=== PATIENT | female | born 1960 | race African-American/Black ===

== ENCOUNTER 2021-03-25 12:07 | Outpatient (CLI) | payer BC | END 2021-03-25 12:08 | disposition home or self-care (01) | LOC: BICULT 12:07 | PROVIDERS: ATTEND Internal Medicine | DX: R22.1 Localized swelling, mass and lump, neck (principal) | CPT/HCPCS: 76536 ==

== ENCOUNTER 2022-07-23 07:48 | Outpatient (CLI) | payer BC | END 2022-07-23 07:49 | disposition home or self-care (01) | LOC: BICMAMMO 07:48 | PROVIDERS: ATTEND Internal Medicine | DX: Z12.31 Encounter for screening mammogram for malignant neoplasm of breast (principal) | CPT/HCPCS: 77063; 77067 ==